=== PATIENT | male | born 1940 | race Caucasian/White ===

== ENCOUNTER → 2022-10-01 | Outpatient (CLI) | payer MEDICARE ==
[2022-10-01 14:17] LABS: Basophils # (A) 0.09 X 10*3/uL (0.00-0.10); Basophils % (A) 1.5 %; Eosinophils # (A) 0.29 X 10*3/uL (0.04-0.35); HCT 40.4 % (39.6-50.0); HGB 13.4 d/dL (13.0-17.0); Lymphocytes # (A) 1.79 X 10*3/uL (0.90-5.00); Lymphocytes % (A) 30.8 %; MCH 33.7 pg (27.0-32.0); MCHC 33.2 d/dL (32.0-37.0); MCV 101.5 FL (80.0-97.0); Mean Platelet Volume 11.6 FL (9.5-12.2); Monocytes # (A) 0.54 X 10*3/uL (0.20-1.00); Monocytes % (A) 9.3 %; NRBC Per 100 WBC 0 X 10*3/uL (0.00-0.01); Neutrophils # (A) 3.07 X 10*3/uL (1.80-7.70); Neutrophils % (A) 52.9 %; Platelet Count 187 X 10*3/uL (140-440); RBC 3.98 X 10*6/uL (4.40-5.60); RDW 13.5 % (11.5-14.5); WBC 5.81 X 10*3/uL (4.50-10.00)
[2022-10-01 14:45] LABS: ALT 19 U/L (10-49); AST 24 U/L (14-35); Alkaline Phosphatase 59 U/L (41-126); C Reactive Protein <0.30 mg/dL (0.00-0.80); Calcium 9.7 mg/dL (8.7-10.3); Carbon Dioxide 24.6 mmol/L (21.6-31.8); Chloride 105 mmol/L (96-109); Chol/HDL Ratio 2.43 Ratio; Glucose 95 mg/dL (70-110); LDL Cholesterol,Calculated 84.8 mg/dL (0.0-131.0); Potassium 4.8 mmol/L (3.5-5.5); Sodium 140 mmol/L (135-145); VLDL Calculation 12.32 mg/dL (5.00-40.00)
[2022-10-01 14:46] LABS: Appearance,Urine Clear (Clear); Bilirubin,Urine Negative (Negative); Blood,Urine Negative (Negative); Color,Urine Yellow (Yellow); Ketones,Urine Negative (Negative); Nitrite,Urine Negative (Negative); Specific Gravity,Urine 1.011 (1.001-1.030); Urobilinogen,Urine 0.2 E.U./DL
[2022-10-01 15:25] LABS: Erythrocyte Sedimentation Rate 24 mm/Hr (0-20)
== END | disposition home or self-care (01) ==
LOC: LABWHC1 07:31
PROVIDERS: ATTEND Internal Medicine Infectious Disease
DX: Z12.5 Encounter for screening for malignant neoplasm of prostate (principal); E03.9 Hypothyroidism, unspecified; E78.00 Pure hypercholesterolemia, unspecified; D64.9 Anemia, unspecified; N39.0 Urinary tract infection, site not specified
CPT/HCPCS: 36415; 80048; 80061; 81003; 84075; 84153; 84439; 84443; 84450; 84460; 85025; 85652; 86140

== ENCOUNTER → 2023-10-28 | Outpatient (CLI) | payer MEDICARE, OTHER ==
[2023-10-28 15:21] LABS: Basophils # (A) 0.08 X 10*3/uL (0.00-0.10); Basophils % (A) 1.4 %; Eosinophils # (A) 0.29 X 10*3/uL (0.04-0.35); Eosinophils % (A) 5.1 %; HCT 40.3 % (39.6-50.0); HGB 13.3 g/dL (13.0-17.0); Lymphocytes # (A) 1.72 X 10*3/uL (0.90-5.00); Lymphocytes % (A) 30.3 %; MCH 33.4 pg (27.0-32.0); MCV 101.3 FL (80.0-97.0); Mean Platelet Volume 11.9 FL (9.5-12.2); Monocytes # (A) 0.62 X 10*3/uL (0.20-1.00); Monocytes % (A) 10.9 %; NRBC Per 100 WBC 0 X 10*3/uL (0.00-0.01); Neutrophils # (A) 2.95 X 10*3/uL (1.80-7.70); Neutrophils % (A) 51.9 %; Platelet Count 163 X 10*3/uL (140-440); RBC 3.98 X 10*6/uL (4.40-5.60); RDW 13.4 % (11.5-14.5); WBC 5.68 X 10*3/uL (4.50-10.00)
[2023-10-28 15:34] LABS: Erythrocyte Sedimentation Rate 18 mm/Hr (0-20)
[2023-10-28 16:17] LABS: Appearance,Urine Clear (Clear); Bilirubin,Urine Negative (Negative); Blood,Urine Negative (Negative); Color,Urine Yellow (Yellow); Ketones,Urine Negative (Negative); Nitrite,Urine Negative (Negative); PH, Urine 6.5; Specific Gravity,Urine 1.012 (1.001-1.030); Urobilinogen,Urine 0.2 E.U./DL
[2023-10-28 16:22] LABS: Bacteria,Urine 1+ (None Seen)
[2023-10-28 18:45] LABS: ALT 21 U/L (10-49); AST 27 U/L (14-35); Alkaline Phosphatase 63 U/L (41-126); BUN/Creat Ratio 16.73 Ratio (12.00-20.00); Blood Urea Nitrogen 18.4 mg/dL (9.0-27.0); C Reactive Protein <0.30 mg/dL (0.00-0.80); Calcium 9.2 mg/dL (8.7-10.3); Carbon Dioxide 24.3 mmol/L (21.6-31.8); Chloride 106 mmol/L (96-109); Chol/HDL Ratio 2.54 Ratio; Glucose 106 mg/dL (70-110); LDL Cholesterol,Calculated 89.8 mg/dL (0.0-131.0); Potassium 4.6 mmol/L (3.5-5.5); Prostate Specific Antigen 0.35 ng/mL (0.000-6.500); Sodium 141 mmol/L (135-145); T4, Free (Free Thyroxine) 1.22 ng/dL (0.80-1.80); VLDL Calculation 9.62 mg/dL (5.00-40.00)
== END ==
LOC: LABWHC1 08:20
PROVIDERS: ATTEND Internal Medicine Infectious Disease
DX: E78.00 Pure hypercholesterolemia, unspecified (principal); D64.9 Anemia, unspecified; Z12.5 Encounter for screening for malignant neoplasm of prostate; E03.9 Hypothyroidism, unspecified; N39.0 Urinary tract infection, site not specified
CPT/HCPCS: 36415; 80048; 80061; 81001; 84075; 84153; 84439; 84443; 84450; 84460; 85025; 85652; 86140

== ENCOUNTER → 2024-09-30 | Outpatient (CLI) | payer MEDICARE, OTHER ==
[2024-09-30 11:03] LABS: Basophils # (A) 0.08 X 10*3/uL (0.00-0.10); Basophils % (A) 1.3 %; Eosinophils # (A) 0.33 X 10*3/uL (0.04-0.35); Eosinophils % (A) 5.3 %; HCT 37.1 % (39.6-50.0); HGB 11.9 g/dL (13.0-17.0); Immature Grans, Automated 0.30 %; Lymphocytes # (A) 2.10 X 10*3/uL (0.90-5.00); Lymphocytes % (A) 33.7 %; MCH 32.2 pg (27.0-32.0); MCHC 32.1 g/dL (32.0-37.0); MCV 100.3 FL (80.0-97.0); Monocytes # (A) 0.65 X 10*3/uL (0.20-1.00); Monocytes % (A) 10.4 %; NRBC Per 100 WBC 0 X 10*3/uL (0.00-0.01); Neutrophils # (A) 3.05 X 10*3/uL (1.80-7.70); Neutrophils % (A) 49.0 %; Platelet Count 171 X 10*3/uL (140-440); RBC 3.70 X 10*6/uL (4.40-5.60); RDW 14.7 % (11.5-14.5); WBC 6.23 X 10*3/uL (4.50-10.00)
[2024-09-30 11:31] LABS: ALT 17 U/L (10-49); AST 24 U/L (14-35); Alkaline Phosphatase 60 U/L (41-126); Anion Gap 10.10 mmol/L (4.00-12.00); BUN/Creat Ratio 16.80 Ratio (12.00-20.00); Blood Urea Nitrogen 16.8 mg/dL (9.0-27.0); Calcium 9.2 mg/dL (8.7-10.3); Carbon Dioxide 23.9 mmol/L (21.6-31.8); Chloride 102 mmol/L (96-109); Cholesterol 138.00 mg/dL (0.00-200.00); Glucose 92 mg/dL (70-110); HDL Cholesterol 58.60 mg/dL (40.00-60.00); LDL Cholesterol,Calculated 68.2 mg/dL (0.0-131.0); Potassium 4.5 mmol/L (3.5-5.5); Prostate Specific Antigen 0.28 ng/mL (0.000-6.500); Sodium 136 mmol/L (135-145); T4, Free (Free Thyroxine) 1.25 ng/dL (0.80-1.80); Triglycerides 55.90 mg/dL (0.00-149.00); VLDL Calculation 11.18 mg/dL (5.00-40.00)
[2024-09-30 15:55] LABS: Bilirubin,Urine Negative (Negative); Blood,Urine Negative (Negative); Color,Urine Yellow (Yellow); Ketones,Urine Negative (Negative); Nitrite,Urine Negative (Negative); PH, Urine 6.0; Specific Gravity,Urine 1.006 (1.001-1.030); Urobilinogen,Urine 0.2 E.U./DL
== END | disposition home or self-care (01) ==
LOC: LABWHC1 07:38
PROVIDERS: ATTEND Internal Medicine Infectious Disease
DX: Z12.5 Encounter for screening for malignant neoplasm of prostate (principal); E78.00 Pure hypercholesterolemia, unspecified; D64.9 Anemia, unspecified; E03.9 Hypothyroidism, unspecified; N39.0 Urinary tract infection, site not specified; R70.0 Elevated erythrocyte sedimentation rate
CPT/HCPCS: 36415; 80048; 80061; 81003; 84075; 84153; 84439; 84443; 84450; 84460; 85025; 85652; 86140